=== PATIENT | female | born 1975 ===

== ENCOUNTER 2017-05-10 15:03 | Emergency (ER) | payer SELFPAY ==
[2017-05-10 15:14] VITALS: RESP 18; TEMP 98.3
--- NOTE | 2017-05-10 16:27 | ED PDOC ---
HPI: Abdomen Time Seen by Provider: 05/10/17 15:57 Chief Complaint (Nursing): Abdominal Pain Chief Complaint (Provider): LLQ pain History Per: Patient Onset/Duration Of Symptoms: Days (1 and 1/2 weeks) Current Symptoms Are (Timing): Still Present Location Of Pain/Discomfort: LLQ Quality Of Discomfort: "Pain" Associated Symptoms: denies: Fever, Chills, Nausea, Vomiting, Diarrhea, Loss Of Appetite, Back Pain, Chest Pain, Constipation, Urinary Symptoms Exacerbating Factors: Movement, Walking Alleviating Factors: OTC Meds (advil) Last Bowel Movement: Today Additional Complaint(s): Pt reports that it started while she was stretching 2 Saturdays ago after a [place] class. The pain was mild and tolerable. She rested and attempted to exercise again last Monday, but the pain returned and worse. Then last night it became so severe she couldn't stand up straight and she thought she felt some swelling at the LEFT lower part of abdomen. She took advil with some relief. No nausea, vomiing, diarrhea, constipation, loss of appetite, fever or chills, urinary or vaginal symptoms. Past Medical History Reviewed: Historical Data, Nursing Documentation, Vital Signs Vital Signs: Last Vital Signs Temp 98.3 F 05/10/17 15:10 Pulse 73 05/10/17 15:10 Resp 18 05/10/17 15:10 BP 133/75 05/10/17 15:10 Pulse Ox 100 05/10/17 17:54 - Medical History Other PMH: Oral herpes - Surgical History Surgical History: (x3) - Family History Family History: States: No Known Family Hx - Social History Current smoker - smoking cessation education provided: No - Home Medications Home Medications: Ambulatory Orders Medication Instructions Recorded Cetirizine HCl [Zyrtec] 10 mg PO DAILY #14 capsule 09/05/16 DiphenhydrAMINE [Benadryl] 50 mg PO Q6 PRN #24 cap 09/05/16 Hydrocortisone 1% Oint [Cortizone 0.5 gm EXT BID #1 tube 09/05/16 1% Oint] Methylprednisolone [Medrol Dose 4 mg PO DAILY #21 mg 01/23/17 Pack (21 tabs)] Promethazine HCl/Codeine 5 ml PO HS #80 ml 03/06/17 [Prometh-Codein 6.25-10 mg/5 ml] Ibuprofen [Motrin Tab] 600 mg PO Q8 PRN #60 tab 05/10/17 - Allergies Allergies/Adverse Reactions: Allergies Allergy/AdvReac Type Severity Reaction Status Date / Time Penicillins Allergy REDNESS Verified 01/23/17 14:25 Review of Systems ROS Statement: Except As Marked, All Systems Reviewed And Found Negative (and as per HPI) Constitutional: Negative for: Fever, Chills Gastrointestinal: Positive for: Abdominal Pain. Negative for: Nausea, Vomiting , Diarrhea, Constipation, Melena, Hematochezia, Hematemesis Genitourinary Female: Positive for: Pelvic Pain. Negative for: Dysuria, Frequency, Hematuria, Vaginal Discharge, Vaginal Bleeding Musculoskeletal: Negative for: Back Pain Physical Exam - Reviewed Nursing Documentation Reviewed: Yes Vital Signs Reviewed: Yes - Physical Exam Appears: Positive for: Non-toxic, In Acute Distress (mild painful) Head Exam: Positive for: ATRAUMATIC, NORMOCEPHALIC Skin: Positive for: Warm, Dry Eye Exam: Positive for: EOMI, PERRL Respiratory: Negative for: Accessory Muscle Use, Respiratory Distress Gastrointestinal/Abdominal: Positive for: Bowel Sounds, Soft, Tenderness (LLQ). Negative for: Mass, Distended, Guarding, Rebound, Hernia (inducible or palpable), Asicites Back: Positive for: Normal Inspection. Negative for: Vertebral Tenderness Extremity: Positive for: Normal ROM. Negative for: Deformity Lymphatic: Negative for: Inguinal Node Tenderness Neurologic/Psych: Positive for: Alert. Negative for: Motor/Sensory Deficits - ECG O2 Sat by Pulse Oximetry: 100 - Progress ED Course And Treament: Accession No. : [id number] Patient Name / ID : RENETTA BELL / [id number] Exam Date : 05/10/2017 16:42:36 ( Approved ) Study Comment : Sex / Age : F / 41Y Creator : Gina Guerrero MD Dictator : Gina Guerrero MD Rotary Driller Helper : Extract Operator : Gina Guerrero MD Approver2 : Report Date : 05/10/2017 17:06:05 My Comment : PROCEDURE: Radiographs of the chest and abdomen (obstructive series) HISTORY: LLQ pain COMPARISON: Chest x-ray performed 01/23/17 TECHNIQUE: AP radiograph of the chest, with upright and supine radiographs of the abdomen. FINDINGS: CHEST: The cardiomediastinal silhouette appears within normal limits of size. 4 mm left lower lobe calcified granuloma. No focal consolidation, significant pleural effusion, or definite pneumothorax identified.Please note that chest x- ray has limited sensitivity for the detection of pulmonary masses. ABDOMEN AND PELVIS: Nonspecific bowel gas pattern without finding to suggest obstruction. No definite free air. Moderate constipation. Mild scoliosis of the lumbar spine, may be positional. Degenerative changes of the spine. IMPRESSION: Nonspecific bowel gas pattern without findings to suggest obstruction. Moderate constipation. Accession No. : [id number] Patient Name / ID : RENETTA BELL / [id number] Exam Date : 05/10/2017 17:34:57 ( Approved ) Study Comment : Sex / Age : F / 41Y Creator : Viridiana Garcias Dictator : Viridiana Garcias Rotary Driller Helper : Extract Operator : Viridiana Garcias Approver2 : Report Date : 05/10/2017 18:07:37 My Comment : HISTORY: LEFT pelvic pain COMPARISON: None available. TECHNIQUE: Transvaginal ultrasound examination of the pelvis was obtained. FINDINGS: UTERUS: Measures 9.1 x 4.5 x 6.2 cm. Normal in size and appearance. No fibroid or other mass lesion seen. ENDOMETRIUM: Measures 10.6 mm in diameter. Unremarkable. CERVIX: No cervical abnormality identified. RIGHT OVARY: Measures 2.6 x 1.6 x 1.7 cm. No solid mass. Normal flow. LEFT OVARY: Measures 2.9 x 1.4 x 2.7 cm. No solid mass. Normal flow. FREE FLUID: No significant free fluid noted. OTHER FINDINGS: None. IMPRESSION: No evidence of acute pathology or suspicious lesion in the uterus and adnexa. Disposition - Clinical Impression Clinical Impression: Abdominal pain Counseled Patient/Family Regarding: Studies Performed, Diagnosis, Need For Followup, Rx Given - Disposition Referrals: [facility] [Outside] - 05/15/17 Disposition: Routine/Home Disposition Time: 18:41 Condition: STABLE Prescriptions: Ibuprofen [Motrin Tab] 600 mg PO Q8 PRN #60 tab PRN Reason: Pain, Moderate (4-7) Instructions: Muscle Strain (ED), Acute Abdominal Pain (ED) Print Language: LUX[place]BOURGISH
--- NOTE | 2017-05-10 17:07 | RAD ---
PROCEDURE: Radiographs of the chest and abdomen (obstructive series) HISTORY: LLQ pain COMPARISON: Chest x-ray performed 01/23/17 TECHNIQUE: AP radiograph of the chest, with upright and supine radiographs of the abdomen. FINDINGS: CHEST: The cardiomediastinal silhouette appears within normal limits of size. 4 mm left lower lobe calcified granuloma. No focal consolidation, significant pleural effusion, or definite pneumothorax identified.Please note that chest x-ray has limited sensitivity for the detection of pulmonary masses. ABDOMEN AND PELVIS: Nonspecific bowel gas pattern without finding to suggest obstruction. No definite free air. Moderate constipation. Mild scoliosis of the lumbar spine, may be positional. Degenerative changes of the spine. IMPRESSION: Nonspecific bowel gas pattern without findings to suggest obstruction. Moderate constipation.
--- NOTE | 2017-05-10 18:09 | US ---
HISTORY: LEFT pelvic pain COMPARISON: None available. TECHNIQUE: Transvaginal ultrasound examination of the pelvis was obtained. FINDINGS: UTERUS: Measures 9.1 x 4.5 x 6.2 cm. Normal in size and appearance. No fibroid or other mass lesion seen. ENDOMETRIUM: Measures 10.6 mm in diameter. Unremarkable. CERVIX: No cervical abnormality identified. RIGHT OVARY: Measures 2.6 x 1.6 x 1.7 cm. No solid mass. Normal flow. LEFT OVARY: Measures 2.9 x 1.4 x 2.7 cm. No solid mass. Normal flow. FREE FLUID: No significant free fluid noted. OTHER FINDINGS: None. IMPRESSION: No evidence of acute pathology or suspicious lesion in the uterus and adnexa.
[2017-05-10 18:58] VITALS: BP 110/68; PULSE 89; O2SAT 99
== END 2017-05-10 18:58 | disposition home or self-care (01) ==
LOC: H.ER 15:03
DX: K59.00 Constipation, unspecified (principal); Z88.0 Allergy status to penicillin

== ENCOUNTER 2018-03-14 08:53 | Emergency (ER) | payer SELFPAY ==
[2018-03-14 09:01] VITALS: BMI 29.0
--- NOTE | 2018-03-14 11:01 | ED PDOC ---
History of Present Illness History of Present Illness: Marissa Wolfe is a 42 year old female, with no significant past medical history, who presents to the emergency department complaining of a low grade fever of 100.6, mild headache, body aches, pain with swallowing and behind ears onset for x2 days. Patient reports fever is only at night. She took Tylenol last night but with no relief. She denies any vomiting, diarrhea, recent travel or sick contacts. No further medical complaints. PMD: None provided. HPI: Influenza Time Seen by Provider: 03/14/18 09:00 Chief Complaint: Flu-like Symptoms Chief Complaint (Provider): Flu-like symptoms History Per: Patient Exam Limitations: no limitations Have you had recent travel within the past 21 days to any of: No Onset/Duration Of Symptoms: Days (x2) Symptoms include: fever (low grade 100.6), headache (mild), bodyaches, sore throat, other (pain behind ears). denies: vomiting, diarrhea Sick Contacts (Context): None Past Medical History Reviewed: Historical Data, Nursing Documentation, Vital Signs Vital Signs: Last Vital Signs Temp 98.4 F 03/14/18 09:01 Pulse 85 03/14/18 09:01 Resp 17 03/14/18 09:01 BP 127/68 03/14/18 09:01 Pulse Ox 97 03/14/18 09:01 - Medical History PMH: No Chronic Diseases - Surgical History Surgical History: (x3) - Family History Family History: States: Unknown Family Hx - Social History Current smoker - smoking cessation education provided: No Alcohol: None Drugs: Denies - Home Medications Home Medications: Ambulatory Orders Medication Instructions Recorded No Known Home Med 03/14/18 - Allergies Allergies/Adverse Reactions: Allergies Allergy/AdvReac Type Severity Reaction Status Date / Time Penicillins Allergy REDNESS Verified 03/14/18 09:09 Review of Systems ROS Statement: Except As Marked, All Systems Reviewed And Found Negative Constitutional: Positive for: Fever (low grade), Other (body aches) ENT: Positive for: Ear Pain (behind ears), Throat Pain Gastrointestinal: Negative for: Vomiting, Diarrhea Neurological: Positive for: Headache (mild) Physical Exam - Reviewed Nursing Documentation Reviewed: Yes Vital Signs Reviewed: Yes - Physical Exam Appears: Positive for: Non-toxic, No Acute Distress Head Exam: Positive for: ATRAUMATIC, NORMOCEPHALIC Skin: Positive for: Normal Color, Warm, Dry Eye Exam: Positive for: Normal appearance, EOMI, PERRL ENT: Positive for: TM Is/Are (intact), Pharyngeal Erythema (mild). Negative for : Tonsillar Exudate, Tonsillar Swelling Neck: Positive for: Painless ROM, Supple Cardiovascular/Chest: Positive for: Regular Rate, Rhythm. Negative for: Murmur Respiratory: Positive for: Normal Breath Sounds. Negative for: Respiratory Distress Gastrointestinal/Abdominal: Positive for: Normal Exam, Soft. Negative for: Tenderness, Guarding, Rebound Back: Positive for: Normal Inspection. Negative for: L CVA Tenderness, R CVA Tenderness, Vertebral Tenderness Extremity: Positive for: Normal ROM (all extremities). Negative for: Deformity , Swelling Neurologic/Psych: Positive for: Alert, Oriented. Negative for: Motor/Sensory Deficits Medical Decision Making Medical Decision Making: Initial Impression: Fever and body aches. R/o strep and flu Initial Plan: --Motrin tab 600 mg PO --Throat culture --Influenza A B --Rapid Strep Group A Antigen --Reevaluation 11:20 -Flu and strep negative. pt sleeping comfortably in bed in NAD Patient will be discharged with diagnosis of viral syndrome 11:35 Upon provider evaluation patient is medically stable, and requires no further treatment in the ED at this time. Patient will be discharged home. Counseling was provided and all questions were answered regarding diagnosis and need for follow up with outpatient health clinic. There is agreement to discharge plan. Return if symptoms persist or worsen. Scribe Attestation: Documented by Truman Shen, acting as a scribe for Anastasia Daly MD Provider Scribe Attestation: All medical record entries made by the Scribe were at my direction and personally dictated by me. I have reviewed the chart and agree that the record accurately reflects my personal performance of the history, physical exam, medical decision making, and the department course for this patient. I have also personally directed, reviewed, and agree with the discharge instructions and disposition. - ECG O2 Sat by Pulse Oximetry: 97 (RA) Pulse Ox Interpretation: Normal Disposition - Clinical Impression Clinical Impression: Viral illness - Patient ED Disposition Is Patient to be Admitted: No Counseled Patient/Family Regarding: Studies Performed, Diagnosis, Need For Followup - Disposition Referrals: [facility] [Outside] [facility] [Outside] Disposition: Routine/Home Disposition Time: 10:45 Condition: IMPROVED Additional Instructions: follow up with your primary doctor in 1-2 days take motrin for pain return to the ED with any worsening or concerning symptoms Instructions: Cough, Runny Nose, and the Common Cold (DC) Forms: [facility] ([place])
[2018-03-14 11:38] VITALS: BP 117/81; PULSE 68; RESP 18; TEMP 98.5
[2018-03-14 11:40] VITALS: O2SAT 97
== END 2018-03-14 11:38 | disposition home or self-care (01) ==
LOC: H.ER 08:53
DX: B34.9 Viral infection, unspecified (principal); Z88.0 Allergy status to penicillin

== ENCOUNTER 2018-03-22 15:29 | Emergency (ER) | payer SELFPAY ==
[2018-03-22 15:29] VITALS: BMI 29.0
[2018-03-22 15:37] VITALS: BP 135/83; PULSE 84; RESP 18; TEMP 97.7; O2SAT 99
--- NOTE | 2018-03-22 15:53 | ED PDOC ---
HPI: Eye Injury/Pain Time Seen by Provider: 03/22/18 15:39 Chief Complaint (Nursing): Eye Problem Chief Complaint (Provider): discharge from eye, couigh History Per: Patient History/Exam Limitations: no limitations Current Symptoms Are (Timing): Still Present Additional Complaint(s): 42 y/o female presents to the ED for bilateral eye infection. Patient noticed her eyes tearing up with light green discharge and crusting that began yesterday. Patient has secondary complaint of persistent cough 1 week despite completing Zithromax course. She states she is still having productive cough of yellow and green sputum with no associated chest pain, shortness of breath, fever or chills. PMD: [facility] Past Medical History Reviewed: Historical Data, Nursing Documentation, Vital Signs Vital Signs: Last Vital Signs Temp 97.7 F 03/22/18 15:33 Pulse 84 03/22/18 15:33 Resp 18 03/22/18 15:33 BP 135/83 03/22/18 15:33 Pulse Ox 99 03/22/18 15:33 - Medical History PMH: No Chronic Diseases - Surgical History Surgical History: (x3) - Family History Family History: States: No Known Family Hx - Living Arrangements Living Arrangements: With Family - Social History Current smoker - smoking cessation education provided: No Ex-Smoker (has not smoked in the last 12 months): No Alcohol: None Drugs: Denies - Home Medications Home Medications: Ambulatory Orders Medication Instructions Recorded Albuterol Sulfate [Ventolin Hfa] 1 puff IH Q4 PRN #1 inh 03/22/18 Benzonatate 200 mg PO TID PRN #20 capsule 03/22/18 Tobramycin [Tobrex] 5 ml TOP QID #1 bottle 03/22/18 - Allergies Allergies/Adverse Reactions: Allergies Allergy/AdvReac Type Severity Reaction Status Date / Time Penicillins Allergy REDNESS Verified 03/22/18 15:33 Review of Systems ROS Statement: Except As Marked, All Systems Reviewed And Found Negative Constitutional: Negative for: Fever, Chills Eyes: Positive for: Conjunctivae Inflammation (both eyes), Redness (both eyes), Other (discharge, tearing, and crusting to both eyes). Negative for: Pain, Vision Change, Eyelid Inflammation Cardiovascular: Negative for: Chest Pain Respiratory: Positive for: Cough, Sputum. Negative for: Shortness of Breath, Hemoptysis, SOB with Exertion, Pleuritic Pain, Wheezing Gastrointestinal: Negative for: Nausea, Vomiting Physical Exam - Reviewed Nursing Documentation Reviewed: Yes Vital Signs Reviewed: Yes - Physical Exam Appears: Positive for: Well, Non-toxic, No Acute Distress Head Exam: Positive for: ATRAUMATIC, NORMAL INSPECTION, NORMOCEPHALIC Skin: Positive for: Normal Color. Negative for: Rash Eye Exam: Positive for: EOMI, PERRL, Conjunctival injection (bilaterally), Other (scant yellow discharge bilaterally with tearing noted). Negative for: Normal appearance, Nystagmus, Periorbital swelling, Periorbital tenderness ENT: Positive for: Normal ENT Inspection Neck: Positive for: Normal Cardiovascular/Chest: Positive for: Regular Rate, Rhythm Respiratory: Positive for: Decreased Breath Sounds. Negative for: Wheezing, Respiratory Distress Extremity: Positive for: Normal ROM Neurologic/Psych: Positive for: Alert, Oriented (x3) - Laboratory Results Urine POC: Negative - ECG O2 Sat by Pulse Oximetry: 99 (RA) Pulse Ox Interpretation: Normal - Other Rad CXR X-Ray: Interpreted by Me, Viewed By Me X-Ray Interpretation: no acute infiltrate Medical Decision Making Medical Decision Making: Time: 15:33 Impression: Conjunctivitis and persistent cough Initial Plan: * Test * Chest X-Ray Patient informed of CXR results. Patient completed course of Zithromax last week. Prescriptions given for Tessalon Perles and Ventolin inhaler. Prescription also given for tobramycin ophthalmic. Patient was instructed to follow up with clinic in 2-3 days. Scribe Attestation: Documented by Oscar Jenkins acting as a scribe for Lilliam Tamayo PA-C. MD Scribe Attestation: All medical record entries made by the Scribe were at my direction and personally dictated by me. I have reviewed the chart and agree that the record accurately reflects my personal performance of the history, physical exam, medical decision making, and the department course for this patient. I have also personally directed, reviewed, and agree with the discharge instructions and disposition. Disposition - Clinical Impression Clinical Impression: Conjunctivitis, Cough - Patient ED Disposition Is Patient to be Admitted: No Counseled Patient/Family Regarding: Studies Performed, Diagnosis, Need For Followup, Rx Given - Disposition Referrals: [facility] [Outside] Disposition: Routine/Home Disposition Time: 16:08 Condition: STABLE Additional Instructions: Take prescription meds as directed. Follow-up with clinic in 2-3 days. Prescriptions: Albuterol Sulfate [Ventolin Hfa] 1 puff IH Q4 PRN #1 inh PRN Reason: Wheezing Benzonatate 200 mg PO TID PRN #20 capsule PRN Reason: Cough Tobramycin [Tobrex] 5 ml TOP QID #1 bottle Instructions: Cough in Adults, Conjunctivitis ([place]) (DC) Forms: [facility] ([employer]) (Angolan)
--- NOTE | 2018-03-22 16:29 | RAD ---
HISTORY: Cough COMPARISON: 01/23/2017 TECHNIQUE: Chest PA and lateral FINDINGS: LUNGS: No active pulmonary disease. PLEURA: No significant pleural effusion identified. No pneumothorax apparent. CARDIOVASCULAR: No radiographic findings to suggest acute or significant cardiovascular disease. Last feels No significant interval change compared to the prior examination(s). Concordant results with the preliminary interpretation rendered by the emergency department physician procedure. OSSEOUS STRUCTURES: No significant abnormalities. VISUALIZED UPPER ABDOMEN: Normal. OTHER FINDINGS: None. IMPRESSION: No active disease.
== END 2018-03-22 16:31 | disposition home or self-care (01) ==
LOC: H.ER 15:29
DX: H10.9 Unspecified conjunctivitis (principal); R05 Cough; Z88.0 Allergy status to penicillin